=== PATIENT | male | born 1975 | race Two or more races ===

== ENCOUNTER 2017-09-18 06:00 | Emergency (ER) | payer OTHER ==
[~2017-09-18] VITALS: Ht 165.1 cm; Wt 68.0 kg
[2017-09-18 06:02] VITALS: Ht 165.1 cm; Wt 68.0 kg
[2017-09-18 07:24] LABS: CALCIUM 7.4 mg/dL (8.5-10.1); CARBON DIOXIDE 31.2 mmol/L (21-32); CHLORIDE SERUM 105 mmol/L (98-107); CREATININE SERUM 0.8 mg/dL (0.7-1.3); GFR1 > 60 mL/min; GLUCOSE SERUM 377 mg/dL (74-106); POTASSIUM SERUM 4.9 mmol/L (3.5-5.1); SODIUM SERUM 134 mmol/L (136-145)
[2017-09-18 07:29] LABS: HDL CHOLESTEROL 38 mg/dL (40-60); TRIGLYCERIDES 71 mg/dL (<150)
[2017-09-18 07:30] LABS: CHOLESTEROL 85 mg/dL (<200); CHOLESTEROL/HDL RATIO 2.2
[2017-09-18 07:58] LABS: microscopic required? NO
[2017-09-18 08:15] LABS: urine erythrocyte NEGATIVE (NEGATIVE)
[2017-09-18 08:26] VITALS: BP 128/81
[2017-09-18 08:40] LABS: AMPHETAMINE QUAL UR POSITIVE (NEG <=1000)
== END 2017-09-18 08:26 | disposition other institution (70) ==
LOC: ED 06:00
PROVIDERS: Specialist
DX: E10.65 Type 1 diabetes mellitus with hyperglycemia (principal); F15.10 Other stimulant abuse, uncomplicated; E78.00 Pure hypercholesterolemia, unspecified; I10 Essential (primary) hypertension; Z88.0 Allergy status to penicillin; Z88.5 Allergy status to narcotic agent; Z88.1 Allergy status to other antibiotic agents; Z91.19 Patient's noncompliance with other medical treatment and regimen
CPT/HCPCS: 82962; J1815; J1885; J7030

== ENCOUNTER 2017-09-18 06:00 | Emergency (ER) | payer OTHER | END 2017-09-18 08:26 | disposition other institution (70) | LOC: ED 06:00 | DX: Z02.89 Encounter for other administrative examinations (principal) ==